=== PATIENT | female | born 1945 | race Caucasian/White ===

== ENCOUNTER 2022-12-04 14:40 | Emergency (ER) | payer MEDICARE, SELFPAY ==
[2022-12-04 14:53] VITALS: BP 159/86; PULSE 67; RESP 18; TEMP 36.3; O2SAT 96; BMI 28.3
--- NOTE | 2022-12-04 15:02 | CTR_ITS ---
PROCEDURE INFORMATION: Exam: CT Head Without Contrast Exam date and time: 12/04/2022 5:29 PM Age: 77 years old Clinical indication: Injury or trauma; Fall; Blunt trauma (contusions or hematomas) TECHNIQUE: Imaging protocol: Computed tomography of the head without contrast. Radiation optimization: All CT scans at this facility use at least one of these dose optimization techniques: automated exposure control; mA and/or kV adjustment per patient size (includes targeted exams where dose is matched to clinical indication); or iterative reconstruction. COMPARISON: No relevant prior studies available. RADIATION DOSE METRICS: Total DLP (mGy-cm): 188.3 FINDINGS: Brain: Inferior bifrontal acute parenchymal hematomas noted measuring 3.5 x 1.6 cm on the right and 1.9 x 0.8 cm on the left. There is a surrounding rim of vasogenic edema. Trace subdural hematoma in the anterior/inferior falx in this region as well as along the anterior/superior midline falx. Small amount of parenchymal hematoma noted in the posterior aspect of the right cerebellar lobe measuring up to 1.1 cm length. There is also a small focal area of parenchymal hematoma in the inferior left temporal lobe measuring up to 0.9 cm in length. Trace subarachnoid hemorrhage noted in the right suprasellar basal cistern. There is also trace subdural hematoma anterolateral to the left frontal lobe measuring up to 3 mm. No significant mass effect/midline shift. Cerebral ventricles: No ventriculomegaly. Paranasal sinuses: Visualized sinuses are unremarkable. No fluid levels. Mastoid air cells: Visualized mastoid air cells are well aerated. Bones/joints: Unremarkable. No acute fracture. Soft tissues: Posterior scalp hematoma. CT/CT head wo con* [id number] IMPRESSION: 1. Multifocal acute parenchymal hematomas. This includes the inferior bifrontal lobes, posterior aspect of the right cerebellar lobe, and a small amount along the inferior left temporal lobe. 2. There is trace subdural hematoma along the anterior/inferior and anterior/superior midline falx and anterolateral to the left frontal lobe. 3. Trace subarachnoid hemorrhage in the right suprasellar basal cisterns. THIS REPORT CONTAINS FINDINGS THAT MAY BE CRITICAL TO PATIENT CARE. The findings were verbally communicated via telephone conference with Bo Tapia at 6:02 PM PROGRAM CLERK on 12/04/2022. The findings were acknowledged and understood.
--- NOTE | 2022-12-04 15:02 | CTR_ITS ---
PROCEDURE INFORMATION: Exam: CT Cervical Spine Without Contrast Exam date and time: 12/04/2022 5:29 PM Age: 77 years old Clinical indication: Injury or trauma; Fall; Blunt trauma TECHNIQUE: Imaging protocol: Computed tomography of the cervical spine without contrast. Radiation optimization: All CT scans at this facility use at least one of these dose optimization techniques: automated exposure control; mA and/or kV adjustment per patient size (includes targeted exams where dose is matched to clinical indication); or iterative reconstruction. COMPARISON: No relevant prior studies available. RADIATION DOSE METRICS: Total DLP (mGy-cm): 188.3 FINDINGS: Bones/joints: No acute fracture. Normal alignment. No significant disc protrusion. No severe spinal canal stenosis. Lungs: Lung apices are normal. Soft tissues: Unremarkable. CT/CT cervical spin wo con* [id number] IMPRESSION: No acute findings.
--- NOTE | 2022-12-04 17:34 | W.ED.FALL ---
HPI - Fall General: Chief Complaint: Fall Stated Complaint: dizziness, fall earlier this week Time Seen by Provider: 12/04/22 17:34 History of Present Illness: Ms. Quinn is a 77-year-old lady who presents to the emergency [facility] due to fall. Fall by tripping over uneven surface on Tuesday. No loss of consciousness but did have posterior head strike. Since that time has had inability to eat due to nausea, dizziness, generalized malaise and family has noticed that she seems more lethargic and somnolent. Not on coagulation. No history of similar. Intensity symptoms is moderate. Course is worsened. No other specific changes in health, exacerbating, or alleviating factors identified. Review of Systems General: Reports: 10 or more systems reviewed and unremarkable except in HPI and below PFSH ED PFSH: Medical History (Updated 12/15/22 @ 18:44 by Bo Tapia MD) No significant past medical history Surgical History (Updated 12/15/22 @ 18:37 by Bo Tapia MD) No significant past surgical history Physical Exam Const: COMMON NORMALS: patient oriented x3 and alert GENERAL APPEARANCE: cooperative and well developed HENMT: COMMON NORMALS: normocephalic HEAD & SCALP: normocephalic THROAT: posterior oropharynx normal OTHER: Occipital midline tenderness palpation of the base of the head. No obvious fracture. No moreno signs or raccoon eyes. No hemotympanum. No otorrhea or rhinorrhea. Jaw alignment normal. Dentition baseline. No obvious bony step-offs. No septal hematoma. No evidence of ocular entrapment. Eye: COMMON NORMALS: conjunctivae normal CONJUNCTIVA: Yes conjunctivae normal SCLERA: sclerae normal Neck/C-Spine: COMMON NORMALS: supple GENERAL: Yes trachea midline Chest: COMMONS NORMALS: normal palpation of entire chest wall Resp: COMMON NORMALS: normal respiratory effort and clear to auscultation bilaterally EFFORT & INSPECTION: Yes able to speak in complete sentences AUSCULTATION: clear to auscultation bilaterally Cardio: COMMON NORMALS: regular rate and regular rhythm RATE: regular rate RHYTHM: regular rhythm GI: COMMON NORMALS: Soft to palpation PALPATION: Yes Soft to palpation and No Tenderness to palpation present (GI) PERCUSSION: normal to percussion Back/Pelvis: COMMON NORMALS: no thoracic nor lumbar tenderness Extremity: GENERAL: Yes normal exam except as noted and No edema Neuro: COMMON NORMALS: patient oriented x3, CN's II-XII intact bilaterally, moves all extremities, no focal motor deficits and no sensory deficits noted SENSORIUM/ORIENTATION: Yes alert and No Orientation impaired Psych: COMMON NORMALS: mental status grossly normal and Normal thought process present THOUGHT PROCESS: Normal thought process present Course Vital Signs: Vital signs: Vital Signs Temperature 97.3 F L 12/04/22 14:53 Pulse Rate 67 12/04/22 14:53 Respiratory Rate 18 12/04/22 14:53 Blood Pressure 159/86 12/04/22 14:53 Pulse Oximetry 96 12/04/22 14:53 Oxygen Delivery Me thod 12/04/22 14:53 MDM - Fall Medical Decision Making 77-year-old lady presenting due to fall with head strike and persistent symptoms. No focal neurologic deficits. Head to toe exam performed. Labs notable for mild hemoconcentration and leukocytosis. Metabolic end with dehydration and hypokalemia. Elevated unclear significance. There is no right quadrant tenderness palpation and no evidence of jaundice. Chest x-ray with no lobar consolidation or pneumothorax. Head CT with multiple areas of hemorrhage which is a combination of parenchymal, subdural, subarachnoid. There is no midline shift. Cervical spine negative for fracture or acute traumatic injury. Head bed to 35 degrees. Given hypertension nicardipine ordered. Patient requires neurosurgical evaluation and this is available at our facility. Most likely etiology of patient's symptoms is traumatic head injury with multifocal intracranial hemorrhage. Patient accepted as ED to ED trauma transfer and transferred via EMS to [facility]. She left the emergency department without significant change in neurologic status. GCS 15 without focal neurologic deficits. Medical Records I reviewed the patient's medical records. Lab Data I reviewed the patient's lab results. 12/04/22 18:28 12/04/22 18:28 Radiology Impressions Cervical Spine CT 12/04/22 15:02 IMPRESSION: No acute findings. Head CT 12/04/22 15:02 IMPRESSION: 1. Multifocal acute parenchymal hematomas. This includes the inferior bifrontal lobes, posterior aspect of the right cerebellar lobe, and a small amount along the inferior left temporal lobe. 2. There is trace subdural hematoma along the anterior/inferior and anterior/superior midline falx and anterolateral to the left frontal lobe. 3. Trace subarachnoid hemorrhage in the right suprasellar basal cisterns. THIS REPORT CONTAINS FINDINGS THAT MAY BE CRITICAL TO PATIENT CARE. The findings were verbally communicated via telephone conference with Bo Tapia at 6:02 PM DEVELOPER SUPPORT ENGINEER on 12/04/2022. The findings were acknowledged and understood. Chest X-Ray 12/04/22 17:35 IMPRESSION: No evidence of active cardiopulmonary disease. Laboratory Results WBC 11.5 10^3/uL (4.0-10.0) H 12/04/22 18: RBC 5.13 10^6/uL (4.1-5.3) 12/04/22 18: Hgb 15.9 g/dL (11.5-15.3) H 12/04/22 18: Hct 48.3 % (37.0-47.0) H 12/04/22 18: MCV 94.2 fl (81-99) 12/04/22 18: MCH 31.0 pg (28.0-34.0) 12/04/22 18: MCHC 32.9 g/dL (30.0-36.0) 12/04/22 18: RDW 12.5 % (12.1-15.1) 12/04/22 18: Plt Count 271 10^3/cmm (130-400) 12/04/22 18: MPV 10.8 fL (7.4-10.4) H 12/04/22 18: Neut % (Auto) 79.5 % 12/04/22 18: Lymph % (Auto) 10.0 % 12/04/22 18: Carter % (Auto) 9.6 % 12/04/22 18: Eos % (Auto) 0.2 % 12/04/22 18: Baso % (Auto) 0.2 % 12/04/22 18: Neut # (Auto) 9.10 10^3/uL (1.8-7.7) H 12/04/22 18: Lymph # (Auto) 1.2 10^3/uL (0.8-4.8) 12/04/22 18: Carter # (Auto) 1.1 10^3/uL (0.2-0.9) H 12/04/22 18: Eos # (Auto) 0.0 10^3/uL (0.0-0.8) 12/04/22 18:28 Baso # (Auto) 0.0 10^3/uL (0.0-0.1) 12/04/22 18: Nucleated RBC % (auto) 0 % 12/04/22 18: Nucleated RBCs # 0.0 /100WBC 12/04/22 18: PT 14.30 SECONDS (12.1-14.9) 12/04/22 18: INR 1.07 (0.8-1.2) 12/04/22 18: APTT 28.1 SECONDS (23.9-36.7) 12/04/22 18: Sodium 134 mmol/L (136-145) L 12/04/22 18: Potassium 3.0 mmol/L (3.5-5.1) L 12/04/22 18: Chloride 94 mmol/L (98-107) L 12/04/22: Carbon Dioxide 27 mmol/L (22-29) 12/04/22 18: Anion Gap 16.0 (5-19) 12/04/22 18: BUN 19 mg/dL (8-23) 12/04/22 18: Creatinine 0.5 mg/dL (0.5-0.9) 12/04/22 18: GFR Calculation Not Reportable 12/04/22 18: Glucose 106 mg/dL (65-115) 12/04/22 18: Calculated Osmolality 281 mOsm/kg (285-295) L 12/04/22: Calcium 9.3 mg/dL (8.5-10.5) 12/04/22 18: Total Bilirubin 1.3 mg/dL (0.15-1.2) H 12/04/22 18: AST 19 U/L (0-32) 12/04/22 18: ALT 27 U/L (0-33) 12/04/22 18: Alkaline Phosphatase 93 U/L (35-105) 12/04/22 18: Total Protein 7.5 g/dL (6.6-8.7) 12/04/22 18: Albumin 3.8 g/dL (3.5-5.2) 12/04/22 18:28 Globulin 3.7 g/dL (1.3-4.6) 12/04/22 18:28 Critical Care Time Critical Care Time: Critical Care Time: Yes Total Critical Care Time: 35 Attestation: Due to a high probability of clinically significant, possibly life threatening deterioration, the patient required my highest level of attention and preparedness to intervene emergently and I personally spent this critical care time directly and personally managing the patient. This critical care time included obtaining a history; examining the patient; pulse oximetry; ordering and review of laboratory and imaging studies; arranging urgent treatment with development of a management plan; evaluation of patient's response to treatment; frequent reassessment; and, discussions with other providers as applicable. It was exclusive of separately billable procedures. Primary system involved is head trauma Discharge Plan Discharge Patient Disposition: Xfer Short-Term Hosp Clinical Impression: Traumatic intracerebral hemorrhage, Fall, CHI (closed head injury), Traumatic subarachnoid hemorrhage, Traumatic subdural hematoma Condition: Stable Referrals: Zeus Maya MD [Primary Care Provider] - Coding Level of Care Code ED Literacy Education Professor for [facility]unc[facility] Byers
--- NOTE | 2022-12-04 17:35 | XRR_ITS ---
PROCEDURE INFORMATION: Exam: XR Chest Exam date and time: 12/04/2022 5:49 PM Age: 77 years old Clinical indication: Other: PT has a brain bleed; Patient HX: PT fell earlier in week. CT shows a bleed; Additional info: Fall TECHNIQUE: Imaging protocol: Radiologic exam of the chest. Views: 1 view. COMPARISON: CT cervical spin wo con* [id number] 12/04/2022 5:29 PM FINDINGS: Lungs: Unremarkable. No consolidation. Pleural spaces: Unremarkable. No pleural effusion. No pneumothorax. Heart/Mediastinum: Mildly enlarged heart. Bones/joints: Unremarkable. XR/XR chest 1V portable [id number] IMPRESSION: No evidence of active cardiopulmonary disease.
[2022-12-04 18:34] LABS: Basophils % 0.2 %; Eosinophils % 0.2 %; Hematocrit 48.3 % (37.0-47.0); Hemoglobin 15.9 g/dL (11.5-15.3); Lymphocytes # 1.2 10^3/uL (0.8-4.8); Mean Corpuscular HGB Conc 32.9 g/dL (30.0-36.0); Mean Corpuscular Volume 94.2 fl (81-99); Mean Platelet Volume 10.8 fL (7.4-10.4); Monocytes # 1.1 10^3/uL (0.2-0.9); Monocytes % 9.6 %; Neutrophils % 79.5 %; Nucleated Red Blood Cells % 0 %; Platelet Count 271 10^3/cmm (130-400); Red Blood Count 5.13 10^6/uL (4.1-5.3); Red Cell Distribution Width 12.5 % (12.1-15.1); White Blood Count 11.5 10^3/uL (4.0-10.0)
[2022-12-04 18:45] LABS: INR 1.07 (0.8-1.2)
[2022-12-04 18:46] LABS: Partial Thromboplastin Time 28.1 SECONDS (23.9-36.7)
[2022-12-04 18:51] LABS: Alanine Aminotransferase 27 U/L (0-33); Albumin Level 3.8 g/dL (3.5-5.2); Alkaline Phosphatase 93 U/L (35-105); Aspartate Amino Transferase 19 U/L (0-32); Blood Urea Nitrogen 19 mg/dL (8-23); Calcium 9.3 mg/dL (8.5-10.5); Carbon Dioxide 27 mmol/L (22-29); Chloride 94 mmol/L (98-107); Creatinine Clr Calc Pharmacy 54.0918; Globulin 3.7 g/dL (1.3-4.6); Glucose 106 mg/dL (65-115); Osmolality Calculated 281 mOsm/kg (285-295); Sodium 134 mmol/L (136-145); Total Bilirubin 1.3 mg/dL (0.15-1.2); Total Protein 7.5 g/dL (6.6-8.7)
== END 2022-12-04 19:15 | disposition short-term general hospital (02) ==
PROVIDERS: Emergency Provider Emergency Medicine; PCP Internal Medicine
DX: S06.6XAA Traumatic subarachnoid hemorrhage with loss of consciousness status unknown, initial encounter (principal); S06.5XAA Traumatic subdural hemorrhage with loss of consciousness status unknown, initial encounter; W01.0XXA Fall on same level from slipping, tripping and stumbling without subsequent striking against object, initial encounter
CPT/HCPCS: 70450; 71045; 72125; 80053; 85025; 85610; 85730; 99285